=== PATIENT | male | born 1995 | race Two or more races ===

== ENCOUNTER 2020-08-30 09:04 | Emergency (ER) | payer OTHER ==
[~2020-08-30] VITALS: Ht 177.8 cm; Wt 77.1 kg
[2020-08-30] MEDS ORDERED: MOTRIN IB200 M1 (09:13)
== END 2020-08-30 13:29 | disposition home or self-care (01) ==
LOC: ER 09:04
DX: A90 Dengue fever [classical dengue] (principal); B34.9 Viral infection, unspecified; Z03.818 Encounter for observation for suspected exposure to other biological agents ruled out

== ENCOUNTER 2020-08-31 21:19 | Inpatient (IN) | payer OTHER ==
[~2020-08-31] VITALS: Ht 177.8 cm; Wt 77.1 kg
[~2020-08-31 21:19] MED LIST: MOTRIN IB200 M1
[2020-09-04] MEDS ORDERED: IBUPROFEN600 MG (08:29)
== END 2020-09-05 08:19 | disposition home or self-care (01) | DRG 866 ==
LOC: ER 21:19 → MEDI 09-01 12:46 → MEDJ 09-01 12:46
PROVIDERS: ADMIT Internal Medicine; ATTEND Internal Medicine
PROC: BW40ZZZ Ultrasonography of Abdomen (ICD-10-PCS; principal; 2020-09-01)
DX: A90 Dengue fever [classical dengue] (principal); E86.0 Dehydration; D69.49 Other primary thrombocytopenia; K29.60 Other gastritis without bleeding; Z20.828 Contact with and (suspected) exposure to other viral communicable diseases